=== PATIENT | female | born 1970 | race Caucasian/White ===

== ENCOUNTER 2017-06-28 17:14 | Emergency (ER) | payer OTHER ==
[2017-06-28 17:21] VITALS: RESP 18; TEMP 97.4
[2017-06-28] MEDS ORDERED: PROPARACAINE 0.5% OPHTH DROPS 15 ML BTL LEFT EYE STA (17:31)
[2017-06-28 18:28] LABS: Glucose,Whole Blood 111 mg/dL (75-99)
--- NOTE | 2017-06-28 18:33 | ED ---
Eye Problem HPI - General Chief complaint: Eye Problems Stated complaint: left eye visual disturbance Time Seen by Provider: 06/28/17 17:22 Source: patient, RN notes reviewed Mode of arrival: ambulatory Limitations: no limitations - History of Present Illness Initial comments: This is a 46-year-old female who presents to the emergency department with chief complaint of vision disturbance. Patient states that at approximately 11 AM this morning her left eye became "cloudy." She states that the cloudiness began at the bottom of her field of vision and then progressed to her entire field of vision. She states that when she looked at lights there were rings around them. She states that she did not have complete loss of vision, she was still able to see color and objects. She states that she initially thought that her contact was a dirty so she removed it and cleaned it but noticed no improvement in her vision. While in the emergency department, patient states that her vision is improving. She denies any eye pain but does complain of some mild discomfort. Denies foreign body sensation. Denies fever, chills, chest pain, shortness of breath, abdominal pain, nausea or vomiting, constipation or diarrhea, dysuria or hematuria, numbness or tingling, headache. - Related Data Home Medications Medication Instructions Recorded Confirmed Ascorbic Acid [Vitamin C] 500 mg PO DAILY 06/28/17 06/28/17 Cholecalciferol [Vitamin D3] 1,000 unit PO DAILY 06/28/17 06/28/17 Losartan Potassium [Cozaar] 100 mg PO DAILY 06/28/17 06/28/17 Thiamine [Vitamin B-1] 50 mg PO DAILY 06/28/17 06/28/17 Allergies Allergy/AdvReac Type Severity Reaction Status Date / Time No Known Allergies Allergy Verified 06/28/17 17:24 Review of Systems ROS Statement: Those systems with pertinent positive or pertinent negative responses have been documented in the HPI. ROS Other: All systems not noted in ROS Statement are negative. Past Medical History Past Medical History: Hypertension History of Any Multi-Drug Resistant Organisms: None Reported Past Surgical History: No Surgical Hx Reported Past Psychological History: No Psychological Hx Reported Smoking Status: Never smoker Past Alcohol Use History: Occasional Past Drug Use History: None Reported General Exam - General Exam Comments Initial Comments: General: Awake and alert, well-developed; in no apparent distress. HEENT: Head atraumatic, normocephalic. Pupils are equal, round and reactive to light. Extraocular movements intact. Left conjunctiva is mildly injected, however patient states that she has been rubbing at the eye. Intraocular pressure of left eye 16. Intraocular pressure right eye 17. Visual acuity 20/ 50 in the left eye and 20/25 in the right eye. On fluorescein staining, no corneal abrasions or ulcers are noted. Oropharynx moist without erythema or exudate. Neck: Supple. Normal ROM. Cardiovascular: Regular rate and rhythm. No murmurs, rubs or gallops. Chest symmetrical. No carotid bruits. Respiratory: Lungs clear to auscultation bilaterally. No wheezes, rales or rhonchi. Normal respiratory effort with no use of accessory muscles. Musculoskeletal: Normal ROM, no tenderness bilateral upper and lower extremities. Ambulating normally. Skin: Mallard, warm and dry without rashes or lesions. Neurological: Alert and oriented x3. CN II-XII grossly intact. Speech is fluent and answers are appropriate. No focal neuro deficits. Psychiatric: Normal mood and affect. No overt signs of depression or anxiety noted. Limitations: no limitations Course Vital Signs 06/28/17 17:18 Temperature 97.4 F L Pulse Rate 80 Respiratory 18 Rate Blood Pressure 153/78 O2 Sat by Pulse 100 Oximetry Medical Decision Making - Medical Decision Making This is a 46-year-old female who presented to the emergency department with chief complaint of left eye "cloudiness." While in the emergency department, patient stated that her vision was improving and then on reassessment stated that the cloudiness had completely improved. Visual acuity left eye is 20/50 in the right eye 20/25. Intraocular pressure is normal at 16 in the left eye and 17 in the right eye. Extraocular movements are intact and pupils are equal round and reactive to light. No corneal ulcers or abrasions noted on fluorescein staining. Patient denies any pain. This case was discussed with attending physician, Dr. Harry who was in contact with program management intern, Dr. Glynn. Dr. Glynn recommended patient follow up outpatient with him on Saturday morning. Recommended checking patient's glucose which was 111. Findings and plan were discussed with patient who is in agreement for outpatient follow-up. Advised return to the emergency department if patient develops any worsening of symptoms or visual loss. She is in agreement with plan and voices understanding. All questions were answered. Patient's vital signs are stable and she is no acute distress this time. She'll be discharged home. Disposition Clinical Impression: Visual disturbance Disposition: HOME SELF-CARE Condition: Good Additional Instructions: Please follow-up with program management intern, Dr. Glynn on Saturday morning. Please follow up with primary care provider within 1-2 days. Return to emergency department if symptoms should worsen or any concerns arise. Referrals: Carlie Hernandez DO [Primary Care Provider] - 1-2 days Penny Glynn MD [STAFF PHYSICIAN] - 1-2 days Time of Disposition: 18:32
[2017-06-28 18:48] VITALS: BP 139/97; PULSE 79
== END 2017-06-28 18:46 | disposition home or self-care (01) ==
LOC: EC 17:14
DX: H53.9 Unspecified visual disturbance (principal); I10 Essential (primary) hypertension; Z79.899 Other long term (current) drug therapy
CPT/HCPCS: 36415; 99283

== ENCOUNTER → 2018-08-07 | Outpatient (CLI) | payer OTHER ==
--- NOTE | 2018-08-08 11:49 | P.STRESS ---
- Stress Test Note Stress Test Results/Findings: Exam Performed: stress test Exam Date: 08/07/18 Reason for Exam: CHEST PRESSURE Height: 5 ft 7 in Weight: 90.265 kg Protocol: TIMOTHY Stage: III Duration of Exercise: 7:28 Resting Heart Rate: 77 Resting Blood Pressure: 122/87 Maximum Achieved Heart Rate: 154 Maximum Achieved Blood Pressure: 172/81 85% PMHR: 147 100% PMHR: 173 METS: 8.7 Technologist Comment: Stress Test Results/Findings: Baseline heart is 77 beats a minute Baseline blood pressure 122/87 mmHg baseline 12-lead ECG showed normal sinus rhythm normal cardiac intervals Patient excise a Timothy protocol for 7/2 minutes achieving a peak heart rate of 154 beats a minute. Normal blood pressure response to exercise There is no procedures for ischemia PVCs were noted at peak exercise in a trigeminal pattern no nonsustained ventricular tachycardia. Impression Average excess capacity Normal blood pressure response to excise PVCs at peak exercise No ECG also ischemia
== END | disposition home or self-care (01) ==
LOC: RADNMMAIN 08:39
PROVIDERS: ATTEND Family Medicine
DX: I49.3 Ventricular premature depolarization (principal)
CPT/HCPCS: 93017

== ENCOUNTER → 2018-10-06 | Outpatient (CLI) | payer OTHER ==
--- NOTE | 2018-10-06 10:36 | ECHOF ---
Referral Reason:R07.9 chest pain, I49.3 Ventricular premature depo MEASUREMENTS -------- HEIGHT: 170.2 cm WEIGHT: 86.2 kg BP: RVIDd: 3.3 cm (< 3.3) IVSd: 1.3 cm (0.6 - 1.1) LVIDd: 4.0 cm (3.9 - 5.3) LVPWd: 1.3 cm (0.6 - 1.1) IVSs: 1.4 cm LVIDs: 2.8 cm LVPWs: 1.5 cm LAESV Index (A-L): 20.24 ml/m Ao Diam: 3.3 cm (2.0 - 3.7) AV Cusp: 1.9 cm (1.5 - 2.6) LA Diam: 3.5 cm (2.7 - 3.8) EPSS: 0.5 cm MV E Arnoldo: 1.16 m/s MV DecT: 195 ms MV A Arnoldo: 0.64 m/s MV E/A Ratio: 1.81 RAP: 5.00 mmHg RVSP: 27.63 mmHg MV EF SLOPE: 97.11 mm/s (70 - 150) MV EXCURSION: 1.64 cm (> 18.000) FINDINGS -------- Resting bradycardia (HR<60bpm). This was a technically adequate study. The left ventricular size is normal. There is mild concentric left ventricular hypertrophy. Overa ll left ventricular systolic function is low-normal with, an EF between 50 - 55 %. The diastolic fi lling pattern is normal for the age of the patient. The right ventricle is normal in size. Left atrium is normal size by volume. The right atrial size is normal. Interatrial and interventricular septum intact. The aortic valve is trileaflet and appears structurally normal. There is no evidence of aortic regu rgitation. There is no evidence of aortic stenosis. Mild mitral annular calcification present. Mild mitral regurgitation is present. Mild tricuspid regurgitation present. There is no evidence of pulmonary hypertension. The right v entricular systolic pressure, as measured by Doppler, is 27.63mmHg. There is no pulmonic regurgitation present. The aortic root size is normal. The inferior vena cava was not well visualized. There is no pericardial effusion. CONCLUSIONS -------- 1. Resting bradycardia (HR<60bpm). 2. This was a technically adequate study. 3. The left ventricular size is normal. 4. There is mild concentric left ventricular hypertrophy. 5. Overall left ventricular systolic function is low-normal with, an EF between 50 - 55 %. 6. The diastolic filling pattern is normal for the age of the patient. 7. The right ventricle is normal in size. 8. Left atrium is normal size by volume. 9. The right atrial size is normal. 10. Interatrial and interventricular septum intact. 11. The aortic valve is trileaflet and appears structurally normal. 12. There is no evidence of aortic regurgitation. 13. There is no evidence of aortic stenosis. 14. Mild mitral annular calcification present. 15. Mild mitral regurgitation is present. 16. Mild tricuspid regurgitation present. 17. There is no evidence of pulmonary hypertension. 18. The right ventricular systolic pressure, as measured by Doppler, is 27.63mmHg. 19. There is no pulmonic regurgitation present. 20. The aortic root size is normal. 21. The inferior vena cava was not well visualized. 22. There is no pericardial effusion. [employer]IL [employer]ESSING [employer] MECHANIC: STANLEY Garcia
== END | disposition home or self-care (01) ==
LOC: RADECHMAIN 08:30
PROVIDERS: ATTEND Nurse Practitioner Family
DX: I08.1 Rheumatic disorders of both mitral and tricuspid valves (principal); R07.9 Chest pain, unspecified
CPT/HCPCS: 93306